=== PATIENT | female | born 1995 | race African-American/Black ===

== ENCOUNTER 2018-10-26 08:20 | Emergency (ER) | payer OTHER ==
--- OUTSIDE RECORDS SUMMARY | 2018-10-26 08:28 | XMS REPORT | Continuity of Care Document ---
:1995 External Reference #:[id number] Author Name Soledad Sinha Care Team Providers Name Role Phone Sridhar Oliver M.D. Primary Care Physician Unavailable Payers Date Identification Numbers Payment Provider Subscriber Policy Number: [id number] Yoseph Palacios Group Number: [id number] [address] PayID: [id number] [place] [address] Advance Directives Description No Information Available Problems Description No Information Family History Date Family Member(s) Observation Comments General Diabetes Mother Diabetes Social History Type Date Description Comments Sex Unknown ETOH Use Denies alcohol use Tobacco Use Start: Unknown Patient has never smoked Smoking Status Reviewed: 10/07/18 Patient has never smoked Exercise Type/Frequency Exercises regularly Allergies, Adverse Reactions, Alerts Date Description Reaction Status Severity Comments 10/07/2018 Benzoyl Peroxide Active Medications Medication Date Status Form Strength Qnty SIG Indications Ordering Provider Methotrexate 10/07 Active Tablets 2.5mg 30tab take 4 s capsules Emma, /tablets M.D. by mouth once weekly on Mondays Folic Acid 10/07 Active Tablets 1mg 90tab take one s capsule/ Emma, tablet M.D. daily by mouth Hydroxychloroquine Active Tablets 200mg Take 2 Unknown Sulfate /0000 pills once daily Prednisone Active Tablets 5mg take 1 Unknown /0000 tablet by mouth once daily Naproxen Active Tablets 500mg Melody /Mary Herrera M.D. Lansoprazole Active Capsules 15mg take 1 Unknown /0000 DR capsule by mouth once daily Immunizations Description No Information Available Vital Signs Date Vital Result Comment 10/07/2018 1:14pm Height 61 inches 5'1" Weight 165.50 lb Heart Rate 73 /min BP Systolic Sitting 124 mmHg BP Diastolic Sitting 72 mmHg O2 % BldC Oximetry 97 % BMI (Body Mass Index) 31.3 kg/m2 Results Description No Information Available Procedures Description No Information Available Encounters Description No Information Available Plan of Treatment Future Appointment(s):11/20/2018 10:40 am - Rene Carter M.D. 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
[2018-10-26 08:48] VITALS: BP 115/65
--- NOTE | 2018-10-26 09:21 | UC ---
Respiratory Complaint HPI - HPI Summary HPI Summary: pt c/o cough, nasal and chest congestion, fever and chills X 3 days. Cough is wors at night, has hx of seasonal allergies and asthma. Pt has lupus. - History of Current Complaint Chief Complaint: UCRespiratory Stated Complaint: CHEST DISCOMFORT Time Seen by Provider: 10/26/18 08:59 Hx Obtained From: Patient Hx Last Menstrual Period: unknown ?: No Onset/Duration: Sudden Onset, Lasting Days, Still Present Timing: Intermittent Episodes Severity Initially: Mild Severity Currently: Mild Pain Intensity: 4 Character: Cough: Productive Aggravating Factors: Deep Breaths, Recumbent Position Alleviating Factors: Nothing Associated Signs And Symptoms: Positive: Fever, Chills, URI, Nasal Congestion Related History: Seasonal Allergies - Risk Factors Pulmonary Embolism Risk Factors: Estrogen - has iud with hormones Cardiac Risk Factors: Negative Pseudomonas Risk Factors: Chronic Steriod Use Past 3 Months Tuberculosis Risk Factors: Corticosteriod Use - Allergies/Home Medications Allergies/Adverse Reactions: Allergies Allergy/AdvReac Type Severity Reaction Status Date / Time belimumab [From Benlysta] Allergy Rash Verified 10/26/18 08:38 benzol peroxide Allergy Rash Uncoded 10/26/18 08:38 Home Medications: Home Medications Folic Acid TAB* [Folvite TAB*] 1 mg PO DAILY 10/26/18 [History Confirmed ] Levonorgestrel (Iud) [Kyleena IUD] 17.5 mcg IU ONCE 10/26/18 [History Confirmed 10/26/18] Methotrexate TAB* 2.4 tab PO WEEKLY 10/26/18 [History Confirmed 10/26/18] PMH/Surg Hx/FS Hx/Imm Hx Previously Healthy: Yes - has lupus Respiratory History: Asthma - Surgical History Surgical History: None - Family History Known Family History: Positive: Cardiac Disease - Social History Occupation: Student Lives: Dormitory/Roommates Alcohol Use: None Substance Use Type: Marijuana Substance Use Comment - Amount & Last Used: 4 times weekly Smoking Status (MU): Never Smoked Tobacco Have You Smoked in the Last Year: Yes - Immunization History Vaccination Up to Date: Yes Review of Systems All Other Systems Reviewed And Are Negative: Yes Constitutional: Positive: Fever, Chills Skin: Positive: Negative Eyes: Positive: Negative ENT: Positive: Negative Respiratory: Positive: Cough Cardiovascular: Positive: Negative Gastrointestinal: Positive: Negative Genitourinary: Positive: Negative Motor: Positive: Negative Neurovascular: Positive: Negative Musculoskeletal: Positive: Negative Neurological: Positive: Negative Psychological: Positive: Negative Is Patient Immunocompromised?: No Physical Exam Triage Information Reviewed: Yes Appearance: Well-Appearing Vital Signs: Initial Vital Signs Temp 98.6 F 10/26/18 08:43 Pulse 69 10/26/18 08:43 Resp 17 10/26/18 08:43 BP 115/65 10/26/18 08:43 Pulse Ox 100 10/26/18 08:43 Vital Signs Reviewed: Yes Eye Exam: Normal ENT: Positive: Nasal congestion, TM bulging Dental Exam: Normal Neck exam: Normal Respiratory Exam: Normal Respiratory: Positive: No respiratory distress, Decreased breath sounds Cardiovascular Exam: Normal Musculoskeletal Exam: Normal Neurological Exam: Normal Psychological Exam: Normal Skin Exam: Normal Respiratory Course/Dx - Course Course Of Treatment: Pt has hx of asthma and lupus. I discussed the use of antibiotics with her with her increase risk for infection due to daily prednisone and lupus and asthma dx. - Differential Dx/Diagnosis Differential Diagnosis/HQI/PQRI: Bronchitis, Exacerbation Of COPD Provider Diagnosis: Bronchitis Discharge - Sign-Out/Discharge Documenting (check all that apply): Patient Departure All imaging exams completed and their final reports reviewed: No Studies - Discharge Plan Condition: Stable Disposition: HOME Prescriptions: Albuterol HFA INHALER* [Ventolin HFA Inhaler*] 1 - 2 puff INH Q6H PRN #1 mdi PRN Reason: Sob/Wheezing Azithromycin TAB* [Zithromax TAB (Z-ARLENE) 250 mg #6 tabs] 2 tab PO .TODAY, THEN 1 DAILY #1 arlene Benzonatate CAP* [Tessalon 100 MG CAP*] 200 mg PO Q8H PRN #30 cap PRN Reason: Cough Cetirizine* [ZyrTEC 10 MG TAB*] 10 mg PO DAILY #14 tab predniSONE TAB* [Deltasone 10 MG TAB*] 30 mg PO DAILY #12 tab Patient Education Materials: Acute Bronchitis (ED) Referrals: [facility] [Outside] - If Needed Sridhar Oliver MD [Primary Care Provider] - If Needed - Billing Disposition and Condition Condition: STABLE Disposition: Home
== END 2018-10-26 09:31 | disposition home or self-care (01) ==
LOC: UCCORT 08:20
DX: J45.909 Unspecified asthma, uncomplicated (principal); M32.9 Systemic lupus erythematosus, unspecified; Z88.8 Allergy status to other drugs, medicaments and biological substances
CPT/HCPCS: 99212; G0463

== ENCOUNTER 2019-01-12 14:37 | Emergency (ER) | payer OTHER ==
[2019-01-12 15:05] VITALS: BP 108/64
--- NOTE | 2019-01-12 15:28 | UC ---
Respiratory Complaint HPI - HPI Summary HPI Summary: Pt presents with c/o cough, fver, chills, wheezing X 1 week. Pt was seen at on 01/10/19 and told she has URI and to continue taking previously prescribed antibiotic, given robitussin cough syrup and told to continue to use albuterol inh. Pt states that she is not feeling any better and that her cough and wheezing is not improving. Pt is sitting comfortably in exam room with no SOB or audible wheeze - History of Current Complaint Chief Complaint: UCRespiratory Stated Complaint: COUGH, CHEST CONGESTION Time Seen by Provider: 01/12/19 15:10 Hx Obtained From: Patient Hx Last Menstrual Period: 12/25/18 ?: No Onset/Duration: Sudden Onset, Lasting Days, Still Present Timing: Constant Severity Initially: Mild Severity Currently: Severe Pain Intensity: 9 Character: Cough: Nonproductive Aggravating Factors: Exertion, Deep Breaths, Recumbent Position Alleviating Factors: Nothing Associated Signs And Symptoms: Positive: Wheezing, URI - Risk Factors Pulmonary Embolism Risk Factors: Negative Cardiac Risk Factors: Negative Pseudomonas Risk Factors: Negative Tuberculosis Risk Factors: Negative - Allergies/Home Medications Allergies/Adverse Reactions: Allergies Allergy/AdvReac Type Severity Reaction Status Date / Time belimumab [From Benlysta] Allergy Rash Verified 01/12/19 14:55 benzol peroxide Allergy Rash Uncoded 01/12/19 14:55 PMH/Surg Hx/FS Hx/Imm Hx Previously Healthy: Yes Respiratory History: Asthma - Surgical History Surgical History: None - Family History Known Family History: Positive: Cardiac Disease - Social History Occupation: Student Lives: Dormitory/Roommates Alcohol Use: None Substance Use Type: Marijuana Substance Use Comment - Amount & Last Used: 4 times weekly- last used 01/11/19 Smoking Status (MU): Never Smoked Tobacco Have You Smoked in the Last Year: Yes - Immunization History Vaccination Up to Date: Yes Review of Systems All Other Systems Reviewed And Are Negative: Yes Constitutional: Positive: Fever Skin: Positive: Negative Eyes: Positive: Negative ENT: Positive: Nasal Discharge Respiratory: Positive: Cough, Other - wheezing Cardiovascular: Positive: Negative Gastrointestinal: Positive: Negative Genitourinary: Positive: Negative Motor: Positive: Negative Neurovascular: Positive: Negative Musculoskeletal: Positive: Negative Neurological: Positive: Negative Psychological: Positive: Negative Is Patient Immunocompromised?: No Physical Exam Triage Information Reviewed: Yes Appearance: Well-Appearing, No Pain Distress Vital Signs: Initial Vital Signs Temp 99.6 F 01/12/19 14:55 Pulse 80 01/12/19 14:55 Resp 20 01/12/19 14:55 BP 108/64 01/12/19 14:55 Pulse Ox 100 01/12/19 14:55 Vital Signs Reviewed: Yes Eye Exam: Normal ENT Exam: Normal Dental Exam: Normal Neck exam: Normal Respiratory Exam: Normal Respiratory: Positive: Chest non-tender, Lungs clear, Normal breath sounds Cardiovascular Exam: Normal Musculoskeletal Exam: Normal Neurological Exam: Normal Psychological Exam: Normal Skin Exam: Normal Diagnostics - Radiology No standard instances Radiology Interpretation Completed By: Radiologist - IMPRESSION: No active cardiopulmonary disease is noted. Respiratory Course/Dx - Differential Dx/Diagnosis Differential Diagnosis/HQI/PQRI: Bronchitis Provider Diagnosis: Cough, Viral URI with cough Discharge - Sign-Out/Discharge Documenting (check all that apply): Patient Departure All imaging exams completed and their final reports reviewed: Yes - Discharge Plan Condition: Stable Disposition: HOME Prescriptions: Benzonatate CAP* [Tessalon 100 MG CAP*] 100 mg PO Q12H PRN #30 cap PRN Reason: Cough predniSONE TAB* [Deltasone 10 MG TAB*] 30 mg PO DAILY #12 tab Patient Education Materials: Acute Cough (ED), Wheezing (ED) Referrals: Sridhar Oliver MD [Primary Care Provider] - If Needed - Billing Disposition and Condition Condition: STABLE Disposition: Home
== END 2019-01-12 16:18 | disposition home or self-care (01) ==
LOC: UCCORT 14:37
DX: J06.9 Acute upper respiratory infection, unspecified (principal)
CPT/HCPCS: 71046; 99212; G0463

== ENCOUNTER 2019-02-23 18:12 | Emergency (ER) | payer OTHER ==
[2019-02-23 18:37] VITALS: BP 111/60
[2019-02-23] MEDS ORDERED: predniSONE TAB* 20 MG PO ONE (18:44)
[2019-02-23] MEDS ORDERED: Cephalexin CAP* 500 MG PO ONE (18:44)
--- NOTE | 2019-02-23 18:49 | UC ---
Skin Complaint HPI - HPI Summary HPI Summary: Saturday afternoon 1730 pt was stung by bee on RIGHT elbow. Noticed rash, itching , and swelling around bee sting couple days ago. Nothing taken otc; taking prednisone 5mg daily for lupus. Denies difficulty breathing or trouble swallowing. - History of Current Complaint Chief Complaint: UCSkin Time Seen by Provider: 02/23/19 18:26 Stated Complaint: BEE STING 02/20/19, RASH Hx Obtained From: Patient Hx Last Menstrual Period: 02/16/19; IUD Onset/Duration: Sudden Onset, Lasting Days - 3 Skin Exposure Onset/Duration: Days Ago Timing: Constant Onset Severity: Mild Current Severity: Moderate Pain Intensity: 3 Character: Swelling, Pruritus, Redness, Painful Aggravating Factor(s): Nothing Alleviating Factor(s): Nothing Associated Signs & Symptoms: Positive: Rash Related History: Possible Reaction to: Insect - Allergy/Home Medications Allergies/Adverse Reactions: Allergies Allergy/AdvReac Type Severity Reaction Status Date / Time belimumab [From Benlysta] Allergy Rash Verified 02/23/19 18:31 benzol peroxide Allergy Rash Uncoded 02/23/19 18:31 Home Medications: Home Medications predniSONE TAB* [Deltasone 10 MG TAB*] 5 mg PO DAILY 02/23/19 [History Confirmed 02/23/19] PMH/Surg Hx/FS Hx/Imm Hx Previously Healthy: Yes - Surgical History Surgical History: None - Family History Known Family History: Positive: Cardiac Disease - Social History Alcohol Use: None Substance Use Type: Marijuana Substance Use Comment - Amount & Last Used: 4 times weekly Smoking Status (MU): Never Smoked Tobacco Have You Smoked in the Last Year: Yes - Immunization History Vaccination Up to Date: Yes Review of Systems All Other Systems Reviewed And Are Negative: Yes Skin: Positive: Other Is Patient Immunocompromised?: No Physical Exam Triage Information Reviewed: Yes Appearance: Well-Appearing, Well-Nourished, Pain Distress Vital Signs: Initial Vital Signs Temp 99.3 F 02/23/19 18:33 Pulse 68 02/23/19 18:33 Resp 16 02/23/19 18:33 BP 111/60 02/23/19 18:33 Pulse Ox 100 02/23/19 18:33 Vital Signs Reviewed: Yes Eye Exam: Normal ENT Exam: Normal Dental Exam: Normal Neck exam: Normal Respiratory Exam: Normal Cardiovascular Exam: Normal Abdominal Exam: Normal Bowel Sounds: Positive: Present Musculoskeletal Exam: Normal Neurological Exam: Normal Psychological Exam: Normal Skin: Positive: Other - hives with erythema on right elbow Course/Dx - Course Course Of Treatment: hx obtained, exam performed ,meds reviewed, treated for cellulitis and allergic reaction of bee sting - Differential Diagnoses - Skin Complaint Differential Diagnoses: Cellulitis, Urticaria - Diagnoses Provider Diagnosis: Cellulitis, Allergic reaction to bee sting Discharge ED - Sign-Out/Discharge Documenting (check all that apply): Patient Departure All imaging exams completed and their final reports reviewed: No Studies - Discharge Plan Condition: Stable Disposition: HOME Patient Education Materials: Insect Bite or Sting (ED) Referrals: Sridhar Oliver MD [Primary Care Provider] - Additional Instructions: 1. take the medication as prescribed. 2. follow up if swelling or pain persists or you develop a fever. - Billing Disposition and Condition Condition: STABLE Disposition: Home
== END 2019-02-23 18:56 | disposition home or self-care (01) ==
LOC: UCCORT 18:12
DX: L03.113 Cellulitis of right upper limb (principal); T63.441A Toxic effect of venom of bees, accidental (unintentional), initial encounter; L25.8 Unspecified contact dermatitis due to other agents; L29.9 Pruritus, unspecified; R22.31 Localized swelling, mass and lump, right upper limb; Y92.9 Unspecified place or not applicable
CPT/HCPCS: 99212; A9270-GY; G0463; J7512